=== PATIENT | female | born 1985 | race Caucasian/White ===

== ENCOUNTER → 2016-03-11 | Outpatient (REF) | payer OTHER | END | disposition home or self-care (01) | LOC: M LAB REF 16:15 | PROVIDERS: ATTEND Nurse Practitioner Adult Health | DX: K51.90 Ulcerative colitis, unspecified, without complications (principal); R10.32 Left lower quadrant pain ==

== ENCOUNTER → 2016-04-08 | Outpatient (REF) | payer OTHER | END | disposition home or self-care (01) | LOC: M LAB REF 16:51 | PROVIDERS: ATTEND Nurse Practitioner Adult Health | DX: D75.89 Other specified diseases of blood and blood-forming organs (principal) ==

== ENCOUNTER → 2016-07-03 | Outpatient (CLI) | payer OTHER ==
--- NOTE | 2016-07-05 09:19 | REP ---
Visceral arterial Doppler flow study: History: Left lower and right lower quadrant abdominal pain. Postprandial pain. Weight loss . Technique: Peak systolic and end-diastolic Doppler arterial flow velocities are recorded in the celiac axis, proximal, and mid superior mesenteric artery segments as baseline fasting. The proximal and mid superior mesenteric artery are sampled sequentially after a meal at 10 minute intervals out to 50 minutes after the meal. Results: Peak systolic flow velocity in the abdominal aorta at the level of the mesenteric arteries is normal at 63.2 cm/sec. We were unable to visualize the inferior mesenteric artery due to abdominal gas. Arterial wave forms appear somewhat blunted in the mid SMA. Velocity chart: Baseline: Celiac axis PSV 166 cm/sec, EDV 64 cm/sec. proximal SMA PSV 171, EDV 44. mid SMA 104 EDV 35. 10 minutes post meal challenge: Proximal SMA 382 PSV EDV 47, mid SMA PSV 102 EDV 45. 20 minutes post challenge: proximal SMA PSV 248 EDV 81, mid SMA 167 EDV 63. 30 minutes post challenge: proximal SMA PSV 359 EDV 127, mid SMA 266 EDV 96. 40 minutes post challenge: proximal SMA 473 EDV 142, mid SMA PSV 331 EDV 109. 50 minutes post challenge: proximal SMA PSV 503 cm/s EDV 153, mid SMA 314 PSV EDV is 99. Impression: Fasting celiac arterial velocities are in the upper range of normal. The proximal SMA flow velocity increased appropriately at 10 minutes and tapered appropriate at 20 minutes. Elevated velocities were then observed at 30, 40, and 50 minutes. The mid SMA failed to increase at 10 minutes as would be expected. I cannot exclude a vascular lesion. Consider MR angiography . Signed by Wing Martinez MD 07/05/2016 10:26 A
== END ==
LOC: M RAD 08:17
PROVIDERS: ATTEND Internal Medicine Gastroenterology
DX: R10.32 Left lower quadrant pain (principal); R10.31 Right lower quadrant pain

== ENCOUNTER → 2016-07-08 | Outpatient (CLI) | payer OTHER ==
--- NOTE | 2016-07-08 11:29 | REP ---
Gastric emptying nuclear scintigraphy: History: Nausea and abdominal pain. Technique: 0.985 mCi of technetium-99m sulfur colloid was ingested in two scrambled eggs and 6 ounces of water and sequential anterior and posterior images are acquired for an 89-minute imaging observation period. Regions of interest are drawn around the stomach to plot gastric emptying. Scintigraphic findings: Expected T1/2 is 90 minutes. 28 % emptying is observed in this patient during the 89-minute imaging observation period, for a calculated T1/2 in this patient of 156 minutes. Impression: Delayed gastric emptying. Signed by Wing Martinez MD 07/08/2016 11:21 A
== END ==
LOC: M RAD 08:30
PROVIDERS: ATTEND Internal Medicine Gastroenterology
DX: R10.32 Left lower quadrant pain (principal); R10.31 Right lower quadrant pain; K30 Functional dyspepsia

== ENCOUNTER 2016-08-22 14:29 | Emergency (ER) | payer OTHER ==
[~2016-08-22] VITALS: Ht 157.5 cm; Wt 47.8 kg
[2016-08-22] MEDS ORDERED: PRED20TA PO (14:38)
[2016-08-22] MEDS ORDERED: METO1TAB32 PO (14:38)
[2016-08-22] MEDS ORDERED: IMUR50TA6 PO (14:38)
[2016-08-22] MEDS ORDERED: HUMI40KI SC (14:38)
[2016-08-22] MEDS ORDERED: XANA0.5T PO (14:38)
[2016-08-22] MEDS ORDERED: KETOROLAC 30 MG/ML VIAL (J1885) IV ONE (15:15)
[2016-08-22] MEDS ORDERED: GASTROGRAFIN SOLUTION 30ML (Q9963) As Ordered ONE (15:32)
[2016-08-22] MEDS ORDERED: ONDANSETRON 4MG/2ML VIAL (J2405) IV ONE (15:45)
[2016-08-22 15:51] LABS: BASO % 0.3 % (0.0-1.0); EOS # 0.1 K/mm3 (0.0-0.50); EOS % 0.7 % (0.0-3.0); LARGE UNSTAINED CELL # 0.1 K/mm3 (0.0-0.4); LARGE UNSTAINED CELL % 0.7 % (0.0-4.0); LYMPH # 1.3 K/mm3 (1.5-4.5); LYMPH % 11.3 % (24.0-44.0); MEAN CORPUSCULAR HEMOGLOBIN 38.9 pg (27.0-33.0); MEAN CORPUSCULAR HGB CONC 34.6 g/dl (32.0-36.5); MEAN CORPUSCULAR VOLUME 112.7 fl (80.0-96.0); MONO # 0.1 K/mm3 (0.0-0.8); MONO % 1.2 % (0.0-5.0); NEUTROPHILS # 9.3 K/mm3 (1.8-7.7); NEUTROPHILS % 85.7 % (36.0-66.0); PLATELET COUNT, AUTOMATED 270 k/mm3 (150-450); WHITE BLOOD COUNT 10.9 K/mm3 (4.0-10.0)
[2016-08-22 16:18] LABS: ADD MORPHOLOGY? YES
[2016-08-22] MEDS ORDERED: GASTROGRAFIN SOLUTION 30ML (Q9963) PO ONE ×2 (16:30)
[2016-08-22] MEDS ORDERED: MORPHINE 2 MG/ML 1ML SYRINGE IV ONE (17:00)
[2016-08-22 17:18] LABS: ALBUMIN 3.8 GM/DL (3.2-5.2); ALBUMIN/GLOBULIN RATIO 1.46 (1.00-1.93); ALKALINE PHOSPHATASE 51 U/L (45-117); ALT/SGPT 76 U/L (12-78); AMYLASE 48 U/L (25-115); ANION GAP 7 MEQ/L (8-16); AST/SGOT 29 U/L (15-37); BILIRUBIN,DIRECT < 0.1 MG/DL (0.0-0.2); BILIRUBIN,TOTAL 0.4 MG/DL (0.2-1.0); BLOOD UREA NITROGEN 13 MG/DL (7-18); CALCIUM LEVEL 8.7 MG/DL (8.5-10.1); CARBON DIOXIDE LEVEL 31 MEQ/L (21-32); CHLORIDE LEVEL 102 MEQ/L (98-107); GLOMERULAR FILTRATION RATE > 60.0 (>60); GLUCOSE, FASTING 98 MG/DL (70-105); SODIUM LEVEL 140 MEQ/L (136-145); TOTAL PROTEIN 6.4 GM/DL (6.4-8.2)
[2016-08-22] MEDS ORDERED: ISOVUE-370 76% 100ML VIAL (Q9967) As Ordered ONE (17:22)
--- NOTE | 2016-08-22 17:45 | REP ---
Clinical: Abnormal bowel habits and abdominal pain. Technique: Axial contrast enhanced images from the lung bases to the pubic symphysis using oral and 100 ml Isovue 370 intravenous contrast material with coronal and sagittal re-formations. Comparison: 03/25/2016. Findings: Lung bases clear. Visualized heart and pericardium normal. Liver, spleen, pancreas, gallbladder, bilateral adrenal glands and kidneys are normal. Incidental note is made of subcentimeter hepatic cyst in the left lobe which is unchanged. The enteric system is without obstruction or acute inflammatory process. Fecal stasis suggested and consistent with a history of constipation. Pelvis demonstrates normal bladder and prior hysterectomy. No ascites. No adenopathy. No free air. Vasculature is normal. Surrounding musculoskeletal structures are intact. Impression: Fecal stasis. No acute intra-abdominal pelvic pathology appreciated. Signed by Yandel Spann MD 08/22/2016 05:37 P
[2016-08-22] MEDS ORDERED: NS 1,000 ML IV ONE (18:00)
[2016-08-22] MEDS ORDERED: MAGNESIUM CITRATE 300 ML BTL PO ONE (19:45)
[2016-08-22] MEDS ORDERED: MACR100C43 PO (19:47)
[2016-08-22 19:54] VITALS: BP 172/90
== END 2016-08-22 20:21 | disposition home or self-care (01) ==
LOC: M ED 14:29
DX: N39.0 Urinary tract infection, site not specified (principal); K59.00 Constipation, unspecified; N80.9 Endometriosis, unspecified; K52.9 Noninfective gastroenteritis and colitis, unspecified; Z79.899 Other long term (current) drug therapy; Z79.52 Long term (current) use of systemic steroids
CPT/HCPCS: 36415; 74177; 80048; 80076; 81001; 82150; 83605; 83690; 85025; 96374; 96375; 99284; J1885; J2405; Q9963; Q9967

== ENCOUNTER → 2017-01-23 | Outpatient (CLI) | payer OTHER ==
[~2017-01-23] MED LIST: HUMI40KI SC; IMUR50TA6 PO; MACR100C43 PO; METO1TAB32 PO; PRED20TA PO; XANA0.5T PO
== END ==
LOC: M LAB 11:11
PROVIDERS: ATTEND Internal Medicine Gastroenterology
DX: R10.32 Left lower quadrant pain (principal)